=== PATIENT | male | born 1945 | race Caucasian/White ===

== ENCOUNTER 2022-11-14 15:15 | Emergency (ER) | payer MEDICARE, OTHER ==
[~2022-11-14] VITALS: Ht 180.3 cm; Wt 93.0 kg
[~2022-11-14 15:15] MED LIST: NO MEDS
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
[2022-11-14] MEDS ORDERED: KETOROLAC TROMETHAMINE INJ 30 MG/ML VIAL IM ONE (16:30)
[2022-11-14] MEDS ORDERED: CYCLOBENZAPRINE 10 MG TABLET PO ONE (16:30)
[2022-11-14] MEDS ORDERED: KETOROLAC TROMETHAMINE INJ 30 MG/ML VIAL ONE (16:39)
[2022-11-14] MEDS ORDERED: CYCLOBENZAPRINE 10 MG TABLET ONE (16:39)
[2022-11-14 17:56] VITALS: BP 142/84
== END 2022-11-14 17:57 | disposition home or self-care (01) ==
LOC: ER 15:15
DX: S13.4XXA Sprain of ligaments of cervical spine, initial encounter (principal); V89.2XXA Person injured in unspecified motor-vehicle accident, traffic, initial encounter; Y93.89 Activity, other specified; Y92.89 Other specified places as the place of occurrence of the external cause; Y99.8 Other external cause status
CPT/HCPCS: 72125-TC; J1885